=== PATIENT | female | born 1940 | race Two or more races ===

== ENCOUNTER 2024-01-21 22:13 | Inpatient (IN) | payer MEDICARE, BC ==
[~2024-01-21] VITALS: Ht 154.9 cm; Wt 68.5 kg
[2024-01-21 21:27] VITALS: BP 133/55; PULSE 93; TEMP 97.5
[2024-01-21 21:30] VITALS: BP 133/55; PULSE 93; RESP 18; TEMP 97.5
[~2024-01-21 22:13] MED LIST: DENO60DI SQ; LATA2.5D14 EACHEYE; LOSA50TA41 PO; MESA1.2T2 MT; METF-873 PO; P50 MT; PRED10TA23 PO; ROSU5TAB PO
[2024-01-21] MEDS ORDERED: DIPHENHYDRAMINE 50MG/ML VIAL IV PRN (23:00)
[2024-01-21] MEDS ORDERED: NALOXONE HCL 0.4MG/ML 1ML VIAL IV PRN (23:00)
[2024-01-21] MEDS ORDERED: CLONIDINE 0.1MG TABLET PO PRN (23:00)
[2024-01-22] MEDS: ONDANSETRON HCL 4MG/2ML INJ IV PRN (00:35)
[2024-01-22 06:47] LABS: CHLORIDE 106 mEq/L (98-107); POTASSIUM 4.1 mEq/L (3.5-5.1); SODIUM 139 mEq/L (136-145)
[2024-01-22 06:48] LABS: CARBON DIOXIDE 26 mEq/L (21-32)
[2024-01-22 06:53] LABS: CREATININE 0.8 mg/dL (0.6-1.0); GLUCOSE 113 mg/dL (70-105); UREA NITROGEN BLOOD 21 mg/dL (9-23)
[2024-01-22 06:55] LABS: ALANINE AMINOTRANSFERASE 12 IU/L (10-49); ASPARTATE AMINOTRANSFERASE 22 IU/L (<34); BILIRUBIN TOTAL 0.5 mg/dL (0.1-1.0); PREALBUMIN 13.6 mg/dl (10.0-40.0); PROTEIN TOTAL 6.4 g/dL (6.0-8.3)
[2024-01-22 06:59] LABS: HEMATOCRIT. 49.5 % (36.0-48.0); HEMOGLOBIN. 16.6 g/dL (12.0-16.0); MEAN CORPUSCULAR HEMOGLOBIN 31.1 pg (28.0-32.0); MEAN CORPUSCULAR HGB CONC 33.5 g/dL (31.0-37.0); MEAN CORPUSCULAR VOLUME 92.6 fL (81.0-99.0); PLATELET 306 x1000/uL (130-400); RED BLOOD CELL COUNT 5.35 mill/uL (4.2-5.4); RED CELL DISTRIBUTION WIDTH 14.7 % (11.6-14.6)
[2024-01-22 07:21] LABS: CALCIUM 10.5 mg/dL (8.7-10.4)
[2024-01-22 07:40] LABS: DIFFERENTIAL COMMENT 1
[2024-01-22 08:00] VITALS: BP 126/67; PULSE 95; TEMP 97.8
[2024-01-22] MEDS: CALCITONIN,SALMON, 3.7 ML NASAL SPRAY ONENSTRL SCH (09:50)
[2024-01-22] MEDS: LACTULOSE 20G/30ML UDC PO SCH (09:50)
[2024-01-22] MEDS: LIDOCAINE 5% PATCH TOP SCH (09:51)
[2024-01-22] MEDS: GABAPENTIN 100MG CAPSULE PO SCH (09:51)
[2024-01-22] MEDS: CALCIUM CARBONATE/VITAMIN D3 500MG TABLET PO SCH (09:51)
[2024-01-22] MEDS: METOPROLOL TARTRATE 25MG TABLET PO SCH (09:52)
[2024-01-22 16:12] LABS: PLATELET ESTIMATE NORMAL
[2024-01-22] MEDS: LATANOPROST 0.005% OPHTH DROPS 2.5ML BOTHEYE SCH (21:22)
[2024-01-23 05:55] LABS: BASOPHILS % 0.7 % (0.0-2.0); HEMATOCRIT. 47.1 % (36.0-48.0); HEMOGLOBIN. 15.7 g/dL (12.0-16.0); LYMPHOCYTES % 8.8 % (20.0-50.0); MEAN CORPUSCULAR HEMOGLOBIN 30.8 pg (28.0-32.0); MEAN CORPUSCULAR HGB CONC 33.2 g/dL (31.0-37.0); MEAN CORPUSCULAR VOLUME 92.8 fL (81.0-99.0); MEAN PLATELET VOLUME 9.3 fl (7.4-10.4); MONOCYTES % 9.5 % (2.0-8.0); PLATELET 295 x1000/uL (130-400); RED BLOOD CELL COUNT 5.07 mill/uL (4.2-5.4); RED CELL DISTRIBUTION WIDTH 14.6 % (11.6-14.6); WHITE BLOOD COUNT 9.2 x1000/uL (4.5-11.0)
[2024-01-23 06:11] LABS: CHLORIDE 105 mEq/L (98-107); POTASSIUM 4.1 mEq/L (3.5-5.1); SODIUM 137 mEq/L (136-145)
[2024-01-23 06:12] LABS: CALCIUM 10.8 mg/dL (8.7-10.4); CARBON DIOXIDE 24 mEq/L (21-32)
[2024-01-23 06:13] LABS: THYROID STIMULATING HORMONE 1.72 uIU/mL (0.55-4.78)
[2024-01-23 06:16] LABS: IRON 48 ug/dL (50-170)
[2024-01-23 06:17] LABS: CREATININE 0.9 mg/dL (0.6-1.0); GLUCOSE 82 mg/dL (70-105); UREA NITROGEN BLOOD 32 mg/dL (9-23)
[2024-01-23 06:18] LABS: ALANINE AMINOTRANSFERASE 11 IU/L (10-49)
[2024-01-23 06:19] LABS: ALBUMIN 3.9 g/dL (3.2-4.8); ASPARTATE AMINOTRANSFERASE 21 IU/L (<34); BILIRUBIN TOTAL 0.7 mg/dL (0.1-1.0); PROTEIN TOTAL 6.3 g/dL (6.0-8.3); TOTAL IRON BINDING CAPACITY 229 ug/dl (250-425)
[2024-01-23 06:21] LABS: FOLIC ACID (FOLATE) SERUM > 20.00 ng/mL (>5.38)
[2024-01-23 06:22] LABS: FERRITIN 429 ng/mL (10-291); VITAMIN B12 SERUM 314 pg/mL (211-911)
[2024-01-23 08:00] VITALS: BP 121/44; PULSE 80; RESP 17; TEMP 98
[2024-01-23] MEDS: HYDROCODONE/ACETAMINOPHEN 5/325MG TABLET PO PRN (13:46)
[2024-01-23] MEDS: FERROUS SULFATE 325MG TABLET PO SCH (16:50)
[2024-01-23] MEDS: CYANOCOBALAMIN 1000MCG/ML VIAL IM SCH (16:50)
[2024-01-23 20:00] VITALS: BP 118/62; PULSE 86; RESP 17; TEMP 97.2
[2024-01-24 08:00] VITALS: BP 121/68; PULSE 83; RESP 18; TEMP 97.7
[2024-01-24] MEDS: ASCORBIC ACID 500 MG TABLET PO SCH (09:36)
[2024-01-24] MEDS ORDERED: ACETAMINOPHEN 325MG TABLET PO PRN (12:00)
[2024-01-24] MEDS: LOPERAMIDE HCL 2MG CAPSULE PO PRN (16:24)
[2024-01-24] MEDS: PREDNISONE 10MG TABLET PO SCH (16:24)
[2024-01-24] MEDS ORDERED: MESALAMINE 250MG CAPSULE EXTENDED RELEASE PO SCH (17:00)
[2024-01-24 20:00] VITALS: BP 125/46; PULSE 82; RESP 18; TEMP 98.2
[2024-01-25 08:00] VITALS: BP 181/82; PULSE 104; RESP 17; TEMP 97.3
[2024-01-25] MEDS ORDERED: LACTULOSE 20G/30ML UDC PO PRN (08:15)
[2024-01-25] MEDS: MESALAMINE 400 MG CAPSULE.DR PO SCH (13:49)
[2024-01-25] MEDS ORDERED: METF-414 PO (17:10)
[2024-01-25] MEDS ORDERED: PRED5TAB PO (17:10)
[2024-01-25] MEDS ORDERED: ROSU5TAB PO (17:10)
[2024-01-25] MEDS ORDERED: MESA1.2T3 PO (17:11)
[2024-01-25] MEDS ORDERED: LOSA50TA41 PO (17:11)
[2024-01-25 20:00] VITALS: BP 109/56; PULSE 68; RESP 18; TEMP 98.2
[2024-01-26 07:54] LABS: BASOPHILS % 1.1 % (0.0-2.0); EOSINOPHILS % 2.2 % (0.0-5.0); HEMATOCRIT. 42.3 % (36.0-48.0); HEMOGLOBIN. 14.2 g/dL (12.0-16.0); LYMPHOCYTES % 10.2 % (20.0-50.0); MEAN CORPUSCULAR HEMOGLOBIN 30.7 pg (28.0-32.0); MEAN CORPUSCULAR HGB CONC 33.5 g/dL (31.0-37.0); MEAN CORPUSCULAR VOLUME 91.8 fL (81.0-99.0); MEAN PLATELET VOLUME 9.8 fl (7.4-10.4); MONOCYTES % 9.2 % (2.0-8.0); NEUTROPHILS % 77.3 % (40.0-76.0); PLATELET 276 x1000/uL (130-400); RED BLOOD CELL COUNT 4.61 mill/uL (4.2-5.4); RED CELL DISTRIBUTION WIDTH 14.1 % (11.6-14.6); WHITE BLOOD COUNT 7.7 x1000/uL (4.5-11.0)
[2024-01-26 08:00] VITALS: BP 117/61; PULSE 75; RESP 17; TEMP 96.3
[2024-01-26 08:03] LABS: CHLORIDE 105 mEq/L (98-107); POTASSIUM 3.7 mEq/L (3.5-5.1); SODIUM 139 mEq/L (136-145)
[2024-01-26 08:04] LABS: CARBON DIOXIDE 28 mEq/L (21-32)
[2024-01-26 08:09] LABS: CREATININE 0.7 mg/dL (0.6-1.0); GLUCOSE 86 mg/dL (70-105)
[2024-01-26 08:10] LABS: UREA NITROGEN BLOOD 31 mg/dL (9-23)
[2024-01-26 20:00] VITALS: BP 115/70; PULSE 81; RESP 17; TEMP 97.7
[2024-01-27] MEDS: ACETAMINOPHEN 500MG TABLET PO PRN (02:33)
[2024-01-27 06:35] LABS: CHLORIDE 108 mEq/L (98-107); POTASSIUM 3.7 mEq/L (3.5-5.1); SODIUM 140 mEq/L (136-145)
[2024-01-27 06:36] LABS: CARBON DIOXIDE 27 mEq/L (21-32)
[2024-01-27 06:37] LABS: CALCIUM 10.1 mg/dL (8.7-10.4)
[2024-01-27 06:41] LABS: CREATININE 0.7 mg/dL (0.6-1.0); GLUCOSE 89 mg/dL (70-105)
[2024-01-27 06:42] LABS: UREA NITROGEN BLOOD 27 mg/dL (9-23)
[2024-01-27 06:44] LABS: EOSINOPHILS % 1.7 % (0.0-5.0); HEMATOCRIT. 43.7 % (36.0-48.0); HEMOGLOBIN. 14.8 g/dL (12.0-16.0); LYMPHOCYTES % 12.7 % (20.0-50.0); MEAN CORPUSCULAR HEMOGLOBIN 31.1 pg (28.0-32.0); MEAN CORPUSCULAR HGB CONC 33.9 g/dL (31.0-37.0); MEAN CORPUSCULAR VOLUME 91.9 fL (81.0-99.0); MEAN PLATELET VOLUME 9.8 fl (7.4-10.4); MONOCYTES % 12.3 % (2.0-8.0); NEUTROPHILS % 72.3 % (40.0-76.0); PLATELET 283 x1000/uL (130-400); RED BLOOD CELL COUNT 4.76 mill/uL (4.2-5.4); RED CELL DISTRIBUTION WIDTH 14.1 % (11.6-14.6); WHITE BLOOD COUNT 5.7 x1000/uL (4.5-11.0)
[2024-01-27 08:00] VITALS: BP 140/78; PULSE 86; RESP 19; TEMP 97.1
[2024-01-27] MEDS: ACETAMINOPHEN 325MG TABLET PO PRN (09:18)
[2024-01-27] MEDS: METFORMIN HCL 500MG TABLET PO NR (14:05)
[2024-01-27] MEDS ORDERED: NALOXONE HCL 0.4MG/ML VIAL IV PRN (19:30)
[2024-01-27] MEDS: HYDROCODONE/ACETAMINOPHEN 5/325MG TABLET PO PRN (19:40)
[2024-01-27 20:00] VITALS: BP 140/79; PULSE 88; RESP 17; TEMP 97.9
[2024-01-27] MEDS: ATORVASTATIN CALCIUM 10MG TABLET PO SCH (21:01)
[2024-01-28] MEDS: LOPERAMIDE HCL 2MG CAPSULE PO PRN (01:49)
[2024-01-28 07:30] LABS: CHLORIDE 107 mEq/L (98-107); POTASSIUM 3.4 mEq/L (3.5-5.1); SODIUM 139 mEq/L (136-145)
[2024-01-28 07:31] LABS: CARBON DIOXIDE 27 mEq/L (21-32)
[2024-01-28 07:32] LABS: CALCIUM 9.7 mg/dL (8.7-10.4)
[2024-01-28 07:36] LABS: CREATININE 0.7 mg/dL (0.6-1.0)
[2024-01-28 07:37] LABS: GLUCOSE 75 mg/dL (70-105); UREA NITROGEN BLOOD 28 mg/dL (9-23)
[2024-01-28 07:49] LABS: HEMATOCRIT. 43.6 % (36.0-48.0); HEMOGLOBIN. 14.6 g/dL (12.0-16.0); MEAN CORPUSCULAR HEMOGLOBIN 30.8 pg (28.0-32.0); MEAN CORPUSCULAR HGB CONC 33.5 g/dL (31.0-37.0); MEAN CORPUSCULAR VOLUME 91.7 fL (81.0-99.0); MEAN PLATELET VOLUME 9.4 fl (7.4-10.4); PLATELET 287 x1000/uL (130-400); RED BLOOD CELL COUNT 4.75 mill/uL (4.2-5.4); RED CELL DISTRIBUTION WIDTH 14.2 % (11.6-14.6); WHITE BLOOD COUNT 3.8 x1000/uL (4.5-11.0)
[2024-01-28 07:52] LABS: DIFFERENTIAL COMMENT 1
[2024-01-28 08:00] VITALS: BP 120/63; PULSE 71; RESP 16; TEMP 97
[2024-01-28] MEDS: POTASSIUM CHLORIDE 20MEQ/PACKET PO NR (12:05)
[2024-01-28 20:00] VITALS: BP 131/52; PULSE 78; RESP 17; TEMP 98.1
[2024-01-28 21:08] LABS: PLATELET ESTIMATE NORMAL
[2024-01-29 06:54] LABS: CALCIUM 9.8 mg/dL (8.7-10.4); CARBON DIOXIDE 29 mEq/L (21-32); CHLORIDE 105 mEq/L (98-107); POTASSIUM 3.8 mEq/L (3.5-5.1); SODIUM 141 mEq/L (136-145)
[2024-01-29 07:00] LABS: CREATININE 0.8 mg/dL (0.6-1.0); GLUCOSE 79 mg/dL (70-105); UREA NITROGEN BLOOD 25 mg/dL (9-23)
[2024-01-29 07:06] LABS: BASOPHILS % 0.8 % (0.0-2.0); EOSINOPHILS % 1.8 % (0.0-5.0); HEMATOCRIT. 42.6 % (36.0-48.0); HEMOGLOBIN. 14.3 g/dL (12.0-16.0); LYMPHOCYTES % 10.5 % (20.0-50.0); MEAN CORPUSCULAR HEMOGLOBIN 30.9 pg (28.0-32.0); MEAN CORPUSCULAR HGB CONC 33.6 g/dL (31.0-37.0); MEAN CORPUSCULAR VOLUME 92.1 fL (81.0-99.0); MEAN PLATELET VOLUME 9.1 fl (7.4-10.4); MONOCYTES % 9.5 % (2.0-8.0); NEUTROPHILS % 77.4 % (40.0-76.0); PLATELET 241 x1000/uL (130-400); RED BLOOD CELL COUNT 4.63 mill/uL (4.2-5.4); RED CELL DISTRIBUTION WIDTH 14.1 % (11.6-14.6); WHITE BLOOD COUNT 6.5 x1000/uL (4.5-11.0)
[2024-01-29 08:00] VITALS: BP 117/63; PULSE 72; RESP 18; TEMP 97.9
[2024-01-29 20:00] VITALS: BP 102/67; PULSE 88; RESP 18; TEMP 98.6
[2024-01-30 08:00] VITALS: BP 128/65; PULSE 92; RESP 17; TEMP 97.1
[2024-01-30] MEDS: PREDNISONE 20MG TABLET PO SCH (08:28)
[2024-01-30 19:46] VITALS: BP 122/87; PULSE 54; RESP 17; TEMP 97.2
[2024-01-30] MEDS: MIRTAZAPINE 15MG TABLET PO SCH (21:00)
[2024-01-31 07:55] LABS: BASOPHILS % 0.6 % (0.0-2.0); EOSINOPHILS % 0.7 % (0.0-5.0); HEMATOCRIT. 40.9 % (36.0-48.0); HEMOGLOBIN. 13.7 g/dL (12.0-16.0); LYMPHOCYTES % 9.1 % (20.0-50.0); MEAN CORPUSCULAR HEMOGLOBIN 30.7 pg (28.0-32.0); MEAN CORPUSCULAR HGB CONC 33.5 g/dL (31.0-37.0); MEAN CORPUSCULAR VOLUME 91.7 fL (81.0-99.0); MEAN PLATELET VOLUME 9.8 fl (7.4-10.4); NEUTROPHILS % 80.6 % (40.0-76.0); PLATELET 204 x1000/uL (130-400); RED BLOOD CELL COUNT 4.46 mill/uL (4.2-5.4); RED CELL DISTRIBUTION WIDTH 14.3 % (11.6-14.6); WHITE BLOOD COUNT 9.2 x1000/uL (4.5-11.0)
[2024-01-31 08:00] VITALS: BP 130/62; PULSE 67; RESP 19; TEMP 97.9
[2024-01-31 08:04] LABS: CARBON DIOXIDE 27 mEq/L (21-32); CHLORIDE 104 mEq/L (98-107); POTASSIUM 3.6 mEq/L (3.5-5.1); SODIUM 141 mEq/L (136-145)
[2024-01-31 08:05] LABS: CALCIUM 9.5 mg/dL (8.7-10.4)
[2024-01-31 08:09] LABS: CREATININE 0.7 mg/dL (0.6-1.0)
[2024-01-31 08:10] LABS: GLUCOSE 72 mg/dL (70-105)
[2024-01-31 08:11] LABS: UREA NITROGEN BLOOD 28 mg/dL (9-23)
[2024-01-31] MEDS: MEGESTROL ACETATE 400 MG/10 ML UDC PO NR (14:56)
[2024-01-31 20:00] VITALS: BP 112/50; PULSE 73; RESP 18; TEMP 98.2
[2024-02-01 08:00] VITALS: BP_SYST 135; BP_SYST 151; BP_DIAS 57; BP_DIAS 73; PULSE 71; PULSE 72; RESP 17; RESP 19; TEMP 97.2; TEMP 99
[2024-02-01] MEDS: LACTOBACILLUS GG CAPSULE PO SCH (08:55)
[2024-02-01] MEDS: MULTIVITAMINS,THER W-MINERALS TABLET PO SCH (08:56)
[2024-02-01] MEDS: MEGESTROL ACETATE 400 MG/10 ML UDC PO SCH (09:00)
[2024-02-01] MEDS: DEXT 5%/0.45% NACL 1000ML 1,000 ML IV SCH (10:52)
[2024-02-01 12:44] LABS: CARBON DIOXIDE 29 mEq/L (21-32); CHLORIDE 105 mEq/L (98-107); POTASSIUM 3.9 mEq/L (3.5-5.1); SODIUM 139 mEq/L (136-145)
[2024-02-01 12:45] LABS: CALCIUM 9.5 mg/dL (8.7-10.4)
[2024-02-01 12:49] LABS: CREATININE 0.7 mg/dL (0.6-1.0); GLUCOSE 123 mg/dL (70-105)
[2024-02-01 12:50] LABS: UREA NITROGEN BLOOD 26 mg/dL (9-23)
[2024-02-01 13:15] LABS: HEMATOCRIT. 41.7 % (36.0-48.0); HEMOGLOBIN. 13.9 g/dL (12.0-16.0); MEAN CORPUSCULAR HEMOGLOBIN 30.5 pg (28.0-32.0); MEAN CORPUSCULAR HGB CONC 33.3 g/dL (31.0-37.0); MEAN CORPUSCULAR VOLUME 91.8 fL (81.0-99.0); MEAN PLATELET VOLUME 9.8 fl (7.4-10.4); PLATELET 224 x1000/uL (130-400); RED BLOOD CELL COUNT 4.54 mill/uL (4.2-5.4); RED CELL DISTRIBUTION WIDTH 14.6 % (11.6-14.6); WHITE BLOOD COUNT 12.3 x1000/uL (4.5-11.0)
[2024-02-01 13:17] LABS: DIFFERENTIAL COMMENT 1
[2024-02-01 14:36] LABS: PLATELET ESTIMATE NORMAL
[2024-02-01 18:00] LABS: CLARITY URINE CLEAR (CLEAR); COLOR URINE DARK YELLOW (YELLOW); GLUCOSE URINE NEGATIVE (NEGATIVE); KETONES URINE TRACE (NEGATIVE); LEUKOCYTE ESTERASE URINE TRACE (NEGATIVE); NITRITE URINE NEGATIVE (NEGATIVE); OCCULT BLOOD URINE NEGATIVE (NEGATIVE); PH URINE 5.5 (4.5-8.0); PROTEIN URINE NEGATIVE (NEGATIVE); SPECIFIC GRAVITY URINE 1.024 (1.005-1.030); UROBILINOGEN URINE 0.2 E.U./dL (0.2-1.0)
[2024-02-01 18:21] LABS: BACTERIA URINE TRACE; RBC URINE 0-2 /hpf (0-2); SQUAMOUS EPITHELIAL CELL URINE RARE /lpf (RARE/1+); WBC URINE 0-2 /hpf (0-2)
[2024-02-01 20:00] VITALS: BP 114/61; PULSE 75; RESP 20; TEMP 97.5
[2024-02-02 08:00] VITALS: BP 112/60; PULSE 85; RESP 20; TEMP 100
[2024-02-02 10:41] LABS: BASOPHILS % 0.3 % (0.0-2.0); DIFFERENTIAL COMMENT 0; EOSINOPHILS % 0.7 % (0.0-5.0); HEMATOCRIT. 42.3 % (36.0-48.0); HEMOGLOBIN. 14.2 g/dL (12.0-16.0); LYMPHOCYTES % 8.4 % (20.0-50.0); MEAN CORPUSCULAR HEMOGLOBIN 31.4 pg (28.0-32.0); MEAN CORPUSCULAR HGB CONC 33.6 g/dL (31.0-37.0); MEAN CORPUSCULAR VOLUME 93.3 fL (81.0-99.0); MEAN PLATELET VOLUME 9.5 fl (7.4-10.4); MONOCYTES % 11.1 % (2.0-8.0); NEUTROPHILS % 79.5 % (40.0-76.0); PLATELET 197 x1000/uL (130-400); RED BLOOD CELL COUNT 4.53 mill/uL (4.2-5.4); RED CELL DISTRIBUTION WIDTH 14.2 % (11.6-14.6); WHITE BLOOD COUNT 9.7 x1000/uL (4.5-11.0)
[2024-02-02 11:07] LABS: CALCIUM 9.5 mg/dL (8.7-10.4); CARBON DIOXIDE 26 mEq/L (21-32); CHLORIDE 108 mEq/L (98-107); POTASSIUM 3.2 mEq/L (3.5-5.1); SODIUM 141 mEq/L (136-145)
[2024-02-02 11:12] LABS: CREATININE 0.6 mg/dL (0.6-1.0)
[2024-02-02 11:13] LABS: GLUCOSE 102 mg/dL (70-105); UREA NITROGEN BLOOD 17 mg/dL (9-23)
[2024-02-02 20:00] VITALS: BP 139/62; PULSE 88; RESP 17; TEMP 98.4
[2024-02-03 08:00] VITALS: BP 126/62; PULSE 74; RESP 19; TEMP 98.6
[2024-02-03] MEDS: POTASSIUM CHLORIDE 20MEQ TABLET SR PO NR (12:53)
[2024-02-03 19:49] VITALS: BP 128/49; PULSE 76; RESP 20; TEMP 97.9
[2024-02-04 08:00] VITALS: BP 97/48; PULSE 87; RESP 17; TEMP 96.7
[2024-02-04 09:57] LABS: HEMATOCRIT. 41.1 % (36.0-48.0); HEMOGLOBIN. 13.6 g/dL (12.0-16.0); MEAN CORPUSCULAR HEMOGLOBIN 30.6 pg (28.0-32.0); MEAN CORPUSCULAR HGB CONC 33.1 g/dL (31.0-37.0); MEAN CORPUSCULAR VOLUME 92.5 fL (81.0-99.0); MEAN PLATELET VOLUME 9.7 fl (7.4-10.4); PLATELET 175 x1000/uL (130-400); RED BLOOD CELL COUNT 4.44 mill/uL (4.2-5.4); RED CELL DISTRIBUTION WIDTH 14.9 % (11.6-14.6); WHITE BLOOD COUNT 16.1 x1000/uL (4.5-11.0)
[2024-02-04 10:00] LABS: DIFFERENTIAL COMMENT 1
[2024-02-04 10:19] LABS: CARBON DIOXIDE 25 mEq/L (21-32); CHLORIDE 110 mEq/L (98-107); POTASSIUM 3.8 mEq/L (3.5-5.1); SODIUM 140 mEq/L (136-145)
[2024-02-04 10:20] LABS: CALCIUM 8.5 mg/dL (8.7-10.4)
[2024-02-04 10:25] LABS: CREATININE 0.9 mg/dL (0.6-1.0); GLUCOSE 114 mg/dL (70-105); UREA NITROGEN BLOOD 19 mg/dL (9-23)
[2024-02-04 17:24] LABS: PLATELET ESTIMATE NORMAL
[2024-02-04 20:00] VITALS: BP 105/57; PULSE 65; RESP 19; TEMP 98
[2024-02-05 08:00] VITALS: BP 122/68; PULSE 90; RESP 17; TEMP 96.8
[2024-02-05] MEDS: PHENAZOPYRIDINE HCL 100MG TABLET PO SCH (09:23)
[2024-02-05 12:46] VITALS: BP 119/61; PULSE 88; TEMP 96.8; O2SAT 98
[2024-02-05 13:35] LABS: CARBON DIOXIDE 24 mEq/L (21-32); CHLORIDE 111 mEq/L (98-107); POTASSIUM 4.1 mEq/L (3.5-5.1); SODIUM 141 mEq/L (136-145)
[2024-02-05 13:37] LABS: CALCIUM 8.8 mg/dL (8.7-10.4)
[2024-02-05 13:41] LABS: CREATININE 0.7 mg/dL (0.6-1.0); GLUCOSE 133 mg/dL (70-105); UREA NITROGEN BLOOD 23 mg/dL (9-23)
[2024-02-05 13:43] LABS: HEMATOCRIT. 42.3 % (36.0-48.0); HEMOGLOBIN. 13.9 g/dL (12.0-16.0); MEAN CORPUSCULAR HEMOGLOBIN 30.1 pg (28.0-32.0); MEAN CORPUSCULAR VOLUME 91.4 fL (81.0-99.0); MEAN PLATELET VOLUME 9.8 fl (7.4-10.4); PLATELET 218 x1000/uL (130-400); RED BLOOD CELL COUNT 4.63 mill/uL (4.2-5.4); RED CELL DISTRIBUTION WIDTH 14.5 % (11.6-14.6); WHITE BLOOD COUNT 17.5 x1000/uL (4.5-11.0)
[2024-02-05 13:48] LABS: DIFFERENTIAL COMMENT 1
[2024-02-05 19:04] LABS: PLATELET ESTIMATE NORMAL
== END 2024-02-05 13:40 | DRG 543 ==
PROVIDERS: ADMIT Physical Medicine & Rehabilitation Spinal Cord Injury Medicine; ATTEND Family Medicine Adult Medicine
DX: M48.56XA Collapsed vertebra, not elsewhere classified, lumbar region, initial encounter for fracture (principal); K51.90 Ulcerative colitis, unspecified, without complications; N39.0 Urinary tract infection, site not specified; M48.061 Spinal stenosis, lumbar region without neurogenic claudication; F41.9 Anxiety disorder, unspecified; F39 Unspecified mood [affective] disorder; E78.00 Pure hypercholesterolemia, unspecified; G89.29 Other chronic pain; I10 Essential (primary) hypertension; M81.0 Age-related osteoporosis without current pathological fracture; E61.1 Iron deficiency; E87.6 Hypokalemia; R00.0 Tachycardia, unspecified; R26.2 Difficulty in walking, not elsewhere classified; R53.1 Weakness; R53.81 Other malaise; R20.0 Anesthesia of skin; R30.0 Dysuria; Z88.2 Allergy status to sulfonamides; Z91.81 History of falling; Z82.49 Family history of ischemic heart disease and other diseases of the circulatory system
CPT/HCPCS: 36415; 80048; 80053; 81003; 82306; 82607; 82728; 82746; 82962; 83036; 83540; 83550; 83735; 84134; 84145; 84443; 85025; 85651; 87015; 87045; 87177; 87209; 87427; 87449; 89055; 92523; 92610; 93306; 97110; 97112; 97116; 97150; 97162; 97166; 97530; 97535; 97542; A6261; J2405; J3420; J7512

== ENCOUNTER 2024-06-06 19:04 | Inpatient (IN) | payer MEDICARE, BC, OTHER ==
[~2024-06-06] VITALS: Ht 162.6 cm; Wt 42.8 kg
[~2024-06-06 19:04] MED LIST changes: -DENO60DI SQ; -MESA1.2T2 MT; +MESA1.2T3 PO; +METF-414 PO; -METF-873 PO; -P50 MT; -PRED10TA23 PO; +PRED5TAB PO
[2024-06-06] MEDS: ONDANSETRON HCL 4MG/2ML INJ IV ONE (19:54)
[2024-06-06] MEDS: DILTIAZEM HCL 5MG/ML 5ML VIAL IV ONE ×2 (19:54→20:08)
[2024-06-06] MEDS ORDERED: DILTIAZEM HCL 125 MG in DEXT 5% WATER 100 ML IV ONE (21:45)
[2024-06-06] MEDS: SODIUM CHLORIDE 0.9% 500 ML IV ONE (21:51)
[2024-06-06] MEDS: DILTIAZEM HCL 125 MG in DEXT 5% WATER 100 ML IV PRN (22:10)
[2024-06-06 23:38] LABS: HEMATOCRIT. 48.4 % (36.0-48.0); HEMOGLOBIN. 15.4 g/dL (12.0-16.0); MEAN CORPUSCULAR HEMOGLOBIN 27.9 pg (28.0-32.0); MEAN CORPUSCULAR HGB CONC 31.8 g/dL (31.0-37.0); MEAN CORPUSCULAR VOLUME 87.5 fL (81.0-99.0); MEAN PLATELET VOLUME 9.4 fl (7.4-10.4); PLATELET 198 x1000/uL (130-400); RED BLOOD CELL COUNT 5.53 mill/uL (4.2-5.4); RED CELL DISTRIBUTION WIDTH 15.9 % (11.6-14.6); WHITE BLOOD COUNT 12.7 x1000/uL (4.5-11.0)
[2024-06-06] MEDS ORDERED: IPRATROPIUM/ALBUTEROL 0.5-3(2.5)MG/3ML NEB NEB PRN (23:45)
[2024-06-06] MEDS ORDERED: ACETAMINOPHEN 325MG TABLET PO PRN (23:45)
[2024-06-07] VITALS (49 sets, daily range): BP systolic 87–128; BP diastolic 49–90; PULSE 115–155; RESP 14–31; TEMP 36.50292–36.5292; O2SAT 92–100
[2024-06-07] LABS: CARBON DIOXIDE 32 mEq/L (21-32); DIFFERENTIAL COMMENT 1
[2024-06-07 00:02] LABS: CALCIUM 9.6 mg/dL (8.7-10.4)
[2024-06-07] MEDS: ONDANSETRON HCL 4MG/2ML INJ IV ONE (00:04)
[2024-06-07 00:06] LABS: CREATININE 0.6 mg/dL (0.6-1.0); GLUCOSE 129 mg/dL (70-105); UREA NITROGEN BLOOD 15 mg/dL (9-23)
[2024-06-07 00:08] LABS: TROPONIN I HIGH SENSITIVITY 18 ng/L (3.0-34)
[2024-06-07 01:45] LABS: CHLORIDE 105 mEq/L (98-107); SODIUM 145 mEq/L (136-145)
[2024-06-07 01:49] LABS: POTASSIUM 2.4 mEq/L (3.5-5.1)
[2024-06-07 02:31] LABS: TROPONIN I HIGH SENSITIVITY 18 ng/L (3.0-34)
[2024-06-07] MEDS ORDERED: NALOXONE HCL 0.4MG/ML VIAL IV PRN (04:00)
[2024-06-07] MEDS: MORPHINE SULFATE 2 MG/ML INJ (NOT FOR IM USE) IV PRN (04:39)
[2024-06-07] MEDS: KCL 20MEQ/100ML PREMIX 100 ML IV SCH (04:39)
[2024-06-07 05:05] LABS: PLATELET ESTIMATE NORMAL
[2024-06-07] MEDS: PIPERACILLIN/TAZO 3.375G/50ML 50 ML IV SCH (06:21)
[2024-06-07 07:31] LABS: HEMATOCRIT. 51.6 % (36.0-48.0); HEMOGLOBIN. 16.2 g/dL (12.0-16.0); MEAN CORPUSCULAR HEMOGLOBIN 27.9 pg (28.0-32.0); MEAN CORPUSCULAR HGB CONC 31.3 g/dL (31.0-37.0); MEAN CORPUSCULAR VOLUME 89.1 fL (81.0-99.0); MEAN PLATELET VOLUME 9.3 fl (7.4-10.4); PLATELET 204 x1000/uL (130-400); RED BLOOD CELL COUNT 5.79 mill/uL (4.2-5.4); RED CELL DISTRIBUTION WIDTH 16.2 % (11.6-14.6); WHITE BLOOD COUNT 19.1 x1000/uL (4.5-11.0)
[2024-06-07 07:33] LABS: DIFFERENTIAL COMMENT 1
[2024-06-07 07:43] LABS: CARBON DIOXIDE 31 mEq/L (21-32); CHLORIDE 104 mEq/L (98-107); POTASSIUM 3.1 mEq/L (3.5-5.1); SODIUM 144 mEq/L (136-145)
[2024-06-07 07:44] LABS: CALCIUM 9.5 mg/dL (8.7-10.4)
[2024-06-07 07:49] LABS: CREATININE 0.8 mg/dL (0.6-1.0); GLUCOSE 165 mg/dL (70-105); UREA NITROGEN BLOOD 14 mg/dL (9-23)
[2024-06-07] MEDS ORDERED: ENOXAPARIN 30MG/0.3ML SYR SUBCUT SCH (09:00)
[2024-06-07] MEDS ORDERED: LOSARTAN 50 MG TABLET PO SCH (09:00)
[2024-06-07 10:14] LABS: ANISOCYTOSIS 1+; PLATELET ESTIMATE NORMAL
[2024-06-07] MEDS: ONDANSETRON HCL 4MG/2ML INJ IV PRN (10:24)
[2024-06-07] MEDS: SODIUM CHLORIDE 0.45% 1,000 ML IV SCH (10:30)
[2024-06-07] MEDS: PREDNISONE 10MG TABLET PO SCH (12:56)
[2024-06-07] MEDS: ASPIRIN 81MG TABLET PO SCH (12:56)
[2024-06-07] MEDS: ENOXAPARIN 60MG/0.6ML SYR SUBCUT NR (12:57)
[2024-06-07] MEDS: AMIODARONE 150MG/100ML 100 ML IV NR (12:58)
[2024-06-07 13:00] LABS: PROTHROMBIN TIME 11.5 sec (9.6-11.0)
[2024-06-07] MEDS: KCL 20MEQ/100ML PREMIX 100 ML IV NR (13:23)
[2024-06-07] MEDS: BLOOD SUGAR DIAGNOSTIC STRIP TEST SCH (13:28)
[2024-06-07] MEDS ORDERED: DEXTROSE 50% WATER 50ML SYRINGE IV PRN (13:30)
[2024-06-07] MEDS: INSULIN LISPRO 100 UNITS/ML SUBCUT SCH (13:30)
[2024-06-07] MEDS: DIGOXIN 500MCG/2ML AMP IV NR (19:00)
[2024-06-07] MEDS: AMIODARONE HCL 900 MG in DEXT 5% WATER 482 ML IV PRN (19:08)
[2024-06-07 22:06] LABS: POTASSIUM 3.8 mEq/L (3.5-5.1)
[2024-06-07 22:08] LABS: CALCIUM 9.2 mg/dL (8.7-10.4)
[2024-06-07 22:12] LABS: CREATININE 1.1 mg/dL (0.6-1.0)
[2024-06-08] VITALS (91 sets, daily range): BP systolic 89–140; BP diastolic 57–123; PULSE 117–149; RESP 12–39; TEMP 36.33624–36.61404; O2SAT 96–100
[2024-06-08] MEDS: ENOXAPARIN 60MG/0.6ML SYR SUBCUT SCH (02:24)
[2024-06-08 05:57] LABS: CHLORIDE 102 mEq/L (98-107); POTASSIUM 3.3 mEq/L (3.5-5.1); SODIUM 138 mEq/L (136-145)
[2024-06-08 05:59] LABS: CARBON DIOXIDE 26 mEq/L (21-32)
[2024-06-08 06:00] LABS: HEMATOCRIT. 46.5 % (36.0-48.0); HEMOGLOBIN. 14.9 g/dL (12.0-16.0); MEAN CORPUSCULAR HEMOGLOBIN 28.1 pg (28.0-32.0); MEAN CORPUSCULAR HGB CONC 32.1 g/dL (31.0-37.0); MEAN CORPUSCULAR VOLUME 87.5 fL (81.0-99.0); MEAN PLATELET VOLUME 10.6 fl (7.4-10.4); PLATELET 165 x1000/uL (130-400); RED BLOOD CELL COUNT 5.31 mill/uL (4.2-5.4); RED CELL DISTRIBUTION WIDTH 16.2 % (11.6-14.6); WHITE BLOOD COUNT 18.5 x1000/uL (4.5-11.0)
[2024-06-08 06:04] LABS: GLUCOSE 102 mg/dL (70-105); UREA NITROGEN BLOOD 23 mg/dL (9-23)
[2024-06-08 06:05] LABS: ALBUMIN 3.5 g/dL (3.2-4.8)
[2024-06-08 06:06] LABS: ALANINE AMINOTRANSFERASE 10 IU/L (10-49); ASPARTATE AMINOTRANSFERASE 20 IU/L (<34); DIGOXIN 0.7 ng/mL (0.8-2.0); PROTEIN TOTAL 5.5 g/dL (6.0-8.3)
[2024-06-08 06:12] LABS: DIFFERENTIAL COMMENT 1
[2024-06-08 10:19] LABS: ANISOCYTOSIS 1+; PLATELET ESTIMATE NORMAL
[2024-06-08] MEDS: KCL 20MEQ/100ML PREMIX 100 ML IV NR (15:17)
[2024-06-08] MEDS: PIPERACILLIN/TAZO 3.375G/50ML 50 ML IV SCH (15:18)
[2024-06-08] MEDS ORDERED: AMIODARONE 150MG/100ML 100 ML IV NR (15:30)
[2024-06-08] MEDS ORDERED: AMIODARONE HCL 900 MG in DEXT 5% WATER 482 ML IV SCH (16:00)
[2024-06-08 17:00] LABS: PHOSPHORUS 3.2 mg/dL (2.5-4.9)
[2024-06-08] MEDS: AMIODARONE 150MG/100ML 100 ML IV NR (17:29)
[2024-06-08] MEDS: AMIODARONE HCL 900 MG in DEXT 5% WATER 482 ML IV SCH (17:50)
[2024-06-08] MEDS: MAGNESIUM 2 G PREMIX 50 ML IV NR (21:05)
[2024-06-09] VITALS (87 sets, daily range): BP systolic 70–149; BP diastolic 55–122; PULSE 111–141; RESP 15–27; TEMP 36.61404–37.16964; O2SAT 90–99
[2024-06-09 05:32] LABS: CHLORIDE 99 mEq/L (98-107); POTASSIUM 3.9 mEq/L (3.5-5.1); SODIUM 133 mEq/L (136-145)
[2024-06-09 05:33] LABS: HEMATOCRIT. 43.2 % (36.0-48.0); HEMOGLOBIN. 13.7 g/dL (12.0-16.0); MEAN CORPUSCULAR HEMOGLOBIN 28.2 pg (28.0-32.0); MEAN CORPUSCULAR HGB CONC 31.8 g/dL (31.0-37.0); MEAN CORPUSCULAR VOLUME 88.7 fL (81.0-99.0); MEAN PLATELET VOLUME 10.2 fl (7.4-10.4); PLATELET 164 x1000/uL (130-400); RED BLOOD CELL COUNT 4.87 mill/uL (4.2-5.4); RED CELL DISTRIBUTION WIDTH 16.8 % (11.6-14.6); WHITE BLOOD COUNT 15.6 x1000/uL (4.5-11.0)
[2024-06-09 05:34] LABS: CARBON DIOXIDE 25 mEq/L (21-32)
[2024-06-09 05:35] LABS: CALCIUM 8.4 mg/dL (8.7-10.4)
[2024-06-09 05:39] LABS: CREATININE 1.1 mg/dL (0.6-1.0); GLUCOSE 114 mg/dL (70-105)
[2024-06-09 05:40] LABS: UREA NITROGEN BLOOD 27 mg/dL (9-23)
[2024-06-09 05:41] LABS: ALANINE AMINOTRANSFERASE 11 IU/L (10-49); ALBUMIN 3.2 g/dL (3.2-4.8); ASPARTATE AMINOTRANSFERASE 17 IU/L (<34)
[2024-06-09 05:42] LABS: PROTEIN TOTAL 5.4 g/dL (6.0-8.3)
[2024-06-09 05:53] LABS: DIFFERENTIAL COMMENT 1
[2024-06-09 16:23] LABS: ANISOCYTOSIS 1+; PLATELET ESTIMATE NORMAL
[2024-06-09 17:09] LABS: CREATINE KINASE 18 IU/L (34-145)
[2024-06-09] MEDS ORDERED: AMIODARONE HCL 900 MG in DEXT 5% WATER 482 ML IV PRN (18:30)
[2024-06-09 19:34] LABS: CLARITY URINE TURBID (CLEAR); COLOR URINE DARK YELLOW (YELLOW); GLUCOSE URINE NEGATIVE (NEGATIVE); KETONES URINE TRACE (NEGATIVE); LEUKOCYTE ESTERASE URINE 3+ (NEGATIVE); NITRITE URINE POSITIVE (NEGATIVE); OCCULT BLOOD URINE 3+ (NEGATIVE); PH URINE 6.5 (4.5-8.0); PROTEIN URINE 2+ (NEGATIVE); SPECIFIC GRAVITY URINE 1.022 (1.005-1.030)
[2024-06-09 20:19] LABS: WBC URINE TNTC /hpf (0-2)
[2024-06-09 20:20] LABS: BACTERIA URINE 4+; SQUAMOUS EPITHELIAL CELL URINE 1+ /lpf (RARE/1+)
[2024-06-10] VITALS (69 sets, daily range): BP systolic 84–142; BP diastolic 57–94; PULSE 107–149; RESP 12–29; TEMP 36.22512–37.16964; O2SAT 91–100
[2024-06-10] MEDS: ZOLPIDEM TARTRATE 5MG TABLET PO PRN (00:34)
[2024-06-10 05:41] LABS: HEMATOCRIT. 38.3 % (36.0-48.0); HEMOGLOBIN. 12.5 g/dL (12.0-16.0); MEAN CORPUSCULAR HEMOGLOBIN 28.2 pg (28.0-32.0); MEAN CORPUSCULAR HGB CONC 32.5 g/dL (31.0-37.0); MEAN CORPUSCULAR VOLUME 86.6 fL (81.0-99.0); MEAN PLATELET VOLUME 10.1 fl (7.4-10.4); PLATELET 194 x1000/uL (130-400); RED BLOOD CELL COUNT 4.42 mill/uL (4.2-5.4)
[2024-06-10 05:49] LABS: CALCIUM 7.8 mg/dL (8.7-10.4); CARBON DIOXIDE 25 mEq/L (21-32); CHLORIDE 99 mEq/L (98-107); POTASSIUM 3.7 mEq/L (3.5-5.1); SODIUM 130 mEq/L (136-145)
[2024-06-10 05:54] LABS: CREATININE 0.7 mg/dL (0.6-1.0); GLUCOSE 96 mg/dL (70-105)
[2024-06-10 05:55] LABS: UREA NITROGEN BLOOD 23 mg/dL (9-23)
[2024-06-10 06:05] LABS: DIFFERENTIAL COMMENT 1
[2024-06-10] MEDS ORDERED: DEXT 5%/0.45% NACL 1000ML 1,000 ML IV SCH (08:30)
[2024-06-10] MEDS: MAGNESIUM 2 G PREMIX 50 ML IV SCH (08:51)
[2024-06-10] MEDS: DIGOXIN 500MCG/2ML AMP IV SCH (08:51)
[2024-06-10] MEDS: MAGNESIUM OXIDE 400MG TABLET PO SCH (08:51)
[2024-06-10] MEDS: DEXT 5%/0.9% NACL 1,000 ML IV SCH (08:52)
[2024-06-10 09:52] LABS: ANISOCYTOSIS 1+; PLATELET ESTIMATE NORMAL
[2024-06-10 10:15] LABS: PARTIAL THROMBOPLASTIN TIME 43.7 sec (23.4-31.0); PROTHROMBIN TIME 10.8 sec (9.6-11.0)
[2024-06-10] MEDS ORDERED: FUROSEMIDE 20MG TABLET PO NR (18:30)
[2024-06-10] MEDS: FUROSEMIDE 20MG/2ML VIAL IVP NR (20:25)
[2024-06-11] VITALS (77 sets, daily range): BP systolic 68–112; BP diastolic 41–86; PULSE 100–139; RESP 1–38; TEMP 36.22512–36.72516; O2SAT 94–99
[2024-06-11 06:24] LABS: HEMATOCRIT. 42.3 % (36.0-48.0); HEMOGLOBIN. 13.6 g/dL (12.0-16.0); MEAN CORPUSCULAR HEMOGLOBIN 28.3 pg (28.0-32.0); MEAN CORPUSCULAR HGB CONC 32.2 g/dL (31.0-37.0); MEAN CORPUSCULAR VOLUME 87.7 fL (81.0-99.0); MEAN PLATELET VOLUME 9.3 fl (7.4-10.4); PLATELET 160 x1000/uL (130-400); RED BLOOD CELL COUNT 4.82 mill/uL (4.2-5.4); RED CELL DISTRIBUTION WIDTH 16.3 % (11.6-14.6); WHITE BLOOD COUNT 11.5 x1000/uL (4.5-11.0)
[2024-06-11 06:28] LABS: CALCIUM 7.6 mg/dL (8.7-10.4); CARBON DIOXIDE 27 mEq/L (21-32); CHLORIDE 102 mEq/L (98-107); POTASSIUM 3.5 mEq/L (3.5-5.1); SODIUM 134 mEq/L (136-145)
[2024-06-11 06:33] LABS: CREATININE 0.5 mg/dL (0.6-1.0)
[2024-06-11 06:34] LABS: GLUCOSE 93 mg/dL (70-105); UREA NITROGEN BLOOD 10 mg/dL (9-23)
[2024-06-11 06:41] LABS: DIFFERENTIAL COMMENT 1
[2024-06-11] MEDS ORDERED: LIDOCAINE HCL 1% 10 MG/ML 10ML VIAL ONE (07:37)
[2024-06-11] MEDS: KCL 20MEQ/100ML PREMIX 100 ML IV ONE (08:38)
[2024-06-11 09:11] LABS: ANISOCYTOSIS 1+; PLATELET ESTIMATE NORMAL
[2024-06-11] MEDS: HYDROMORPHONE HCL/PF 2MG/ML INJ IV PRN (10:03)
[2024-06-11] MEDS: HYDROMORPHONE HCL/PF 2MG/ML INJ IV NR (10:07)
[2024-06-11] MEDS: DIGOXIN 500MCG/2ML AMP IV PRN (17:48)
[2024-06-11] MEDS: KETOROLAC 15MG/ML VIAL IV PRN (22:12)
[2024-06-12] VITALS (94 sets, daily range): BP systolic 80–122; BP diastolic 41–92; PULSE 82–117; RESP 8–28; TEMP 36.28068–36.89184; O2SAT 91–100
[2024-06-12] MEDS: PHENYLEPHRINE 50MG/250ML PMX 250 ML IV PRN (02:05)
[2024-06-12 06:58] LABS: HEMATOCRIT. 39.2 % (36.0-48.0); HEMOGLOBIN. 12.5 g/dL (12.0-16.0); MEAN CORPUSCULAR HEMOGLOBIN 27.9 pg (28.0-32.0); MEAN CORPUSCULAR VOLUME 87.1 fL (81.0-99.0); PLATELET 188 x1000/uL (130-400); RED CELL DISTRIBUTION WIDTH 16.5 % (11.6-14.6); WHITE BLOOD COUNT 9.9 x1000/uL (4.5-11.0)
[2024-06-12 07:05] LABS: DIFFERENTIAL COMMENT 1
[2024-06-12 07:14] LABS: CALCIUM 7.8 mg/dL (8.7-10.4); CHLORIDE 99 mEq/L (98-107); POTASSIUM 3.7 mEq/L (3.5-5.1); SODIUM 136 mEq/L (136-145)
[2024-06-12 07:15] LABS: CARBON DIOXIDE 29 mEq/L (21-32)
[2024-06-12 07:20] LABS: CREATININE 0.7 mg/dL (0.6-1.0); GLUCOSE 78 mg/dL (70-105); UREA NITROGEN BLOOD 14 mg/dL (9-23)
[2024-06-12 07:22] LABS: PHOSPHORUS 1.8 mg/dL (2.5-4.9)
[2024-06-12] MEDS: MIDODRINE HCL 5MG TABLET PO SCH (14:26)
[2024-06-12] MEDS: POTASSIUM PHOSPHATE 30 MMOL in SODIUM CHLORIDE 0.9% 490 ML IV ONE (14:28)
[2024-06-12 16:19] LABS: ANISOCYTOSIS 1+; PLATELET ESTIMATE NORMAL
[2024-06-12] MEDS: AMIODARONE 200MG TABLET PO SCH (21:13)
[2024-06-13] VITALS (105 sets, daily range): BP systolic 82–143; BP diastolic 42–131; PULSE 73–119; RESP 12–27; TEMP 37.16964–37.2252; O2SAT 95–100
[2024-06-13 05:35] LABS: HEMATOCRIT 34.7 % (36.0-48.0); HEMOGLOBIN 11.4 g/dL (12.0-16.0)
[2024-06-13 05:39] LABS: CALCIUM 7.4 mg/dL (8.7-10.4); CARBON DIOXIDE 31 mEq/L (21-32); CHLORIDE 101 mEq/L (98-107); POTASSIUM 3.2 mEq/L (3.5-5.1); SODIUM 136 mEq/L (136-145)
[2024-06-13 05:44] LABS: CREATININE 0.5 mg/dL (0.6-1.0); GLUCOSE 80 mg/dL (70-105)
[2024-06-13 05:45] LABS: UREA NITROGEN BLOOD 10 mg/dL (9-23)
[2024-06-13 05:46] LABS: PHOSPHORUS 2.7 mg/dL (2.5-4.9)
[2024-06-13] MEDS: POTASSIUM CHLORIDE 20MEQ/PACKET PO NR (08:47)
[2024-06-13] MEDS: MIDODRINE HCL 5MG TABLET PO SCH (08:48)
[2024-06-13] MEDS: KCL 20MEQ/100ML PREMIX 100 ML IV SCH (11:41)
[2024-06-13] MEDS: PANTOPRAZOLE SODIUM 40 MG/VIAL IV SCH (18:19)
[2024-06-13] MEDS: CLONIDINE 0.1MG TABLET PO PRN (21:08)
[2024-06-14] VITALS: BP 124/58; PULSE 83; RESP 19; TEMP 37.16964; O2SAT 100
[2024-06-14 04:00] VITALS: BP 118/65; PULSE 85; RESP 15; TEMP 36.3918; O2SAT 98
[2024-06-14 08:00] VITALS: BP 120/70; PULSE 112; RESP 18; TEMP 36.6696; O2SAT 99
[2024-06-14] MEDS: LORAZEPAM 1MG TABLET PO PRN (11:57)
[2024-06-14 12:00] VITALS: BP 130/65; PULSE 105; RESP 20; TEMP 36.6696; O2SAT 98
[2024-06-14] MEDS ORDERED: HALOPERIDOL LACTATE 5MG/ML VIAL IM PRN (12:45)
[2024-06-14 14:40] LABS: CLARITY URINE TURBID (CLEAR); COLOR URINE DARK YELLOW (YELLOW); GLUCOSE URINE NEGATIVE (NEGATIVE); KETONES URINE TRACE (NEGATIVE); LEUKOCYTE ESTERASE URINE 3+ (NEGATIVE); NITRITE URINE NEGATIVE (NEGATIVE); OCCULT BLOOD URINE 2+ (NEGATIVE); PH URINE 5.5 (4.5-8.0); PROTEIN URINE 1+ (NEGATIVE); SPECIFIC GRAVITY URINE 1.024 (1.005-1.030); UROBILINOGEN URINE 0.2 E.U./dL (0.2-1.0)
[2024-06-14 14:53] LABS: AMORPHOUS SEDIMENT URINE 3+ /lpf
[2024-06-14 14:54] LABS: BACTERIA URINE 4+; SQUAMOUS EPITHELIAL CELL URINE NONE SEEN /lpf (RARE/1+); WBC URINE TNTC /hpf (0-2)
[2024-06-14 15:03] LABS: URIC ACID CRYSTALS URINE 1+ /lpf
[2024-06-14 16:00] VITALS: BP 115/51; PULSE 113; RESP 17; TEMP 36.6696; O2SAT 99
[2024-06-14 20:05] VITALS: BP 103/76; PULSE 99; RESP 18; TEMP 36.3918; O2SAT 94
[2024-06-14] MEDS: NITROFURANTOIN 100MG M/M CAPSULE PO SCH (22:28)
[2024-06-14] MEDS: FAMOTIDINE 20MG TABLET PO SCH (22:29)
[2024-06-14 23:33] LABS: HEMOGLOBIN. 13.4 g/dL (12.0-16.0); MEAN CORPUSCULAR HEMOGLOBIN 28.5 pg (28.0-32.0); MEAN CORPUSCULAR HGB CONC 32.6 g/dL (31.0-37.0); MEAN CORPUSCULAR VOLUME 87.3 fL (81.0-99.0); MEAN PLATELET VOLUME 7.9 fl (7.4-10.4); PLATELET 255 x1000/uL (130-400); RED CELL DISTRIBUTION WIDTH 16.4 % (11.6-14.6); WHITE BLOOD COUNT 10.1 x1000/uL (4.5-11.0)
[2024-06-14 23:39] LABS: CHLORIDE 101 mEq/L (98-107); POTASSIUM 4.4 mEq/L (3.5-5.1); SODIUM 137 mEq/L (136-145)
[2024-06-14 23:40] LABS: CARBON DIOXIDE 31 mEq/L (21-32)
[2024-06-14 23:43] LABS: DIFFERENTIAL COMMENT 1
[2024-06-14 23:45] LABS: CREATININE 0.5 mg/dL (0.6-1.0); GLUCOSE 95 mg/dL (70-105); UREA NITROGEN BLOOD 14 mg/dL (9-23)
[2024-06-15 00:05] VITALS: BP 121/73; PULSE 92; RESP 20; TEMP 36.50292; O2SAT 94
[2024-06-15 00:15] LABS: PLATELET ESTIMATE NORMAL
[2024-06-15 04:05] VITALS: BP 139/80; PULSE 107; RESP 17; TEMP 36.16956; O2SAT 94
[2024-06-15 06:29] LABS: HEMATOCRIT. 39.3 % (36.0-48.0); HEMOGLOBIN. 12.5 g/dL (12.0-16.0); MEAN CORPUSCULAR HEMOGLOBIN 28.3 pg (28.0-32.0); MEAN CORPUSCULAR HGB CONC 31.8 g/dL (31.0-37.0); MEAN CORPUSCULAR VOLUME 88.9 fL (81.0-99.0); MEAN PLATELET VOLUME 8.2 fl (7.4-10.4); PLATELET 236 x1000/uL (130-400); RED BLOOD CELL COUNT 4.42 mill/uL (4.2-5.4); RED CELL DISTRIBUTION WIDTH 16.7 % (11.6-14.6); WHITE BLOOD COUNT 10.2 x1000/uL (4.5-11.0)
[2024-06-15 06:30] LABS: CARBON DIOXIDE 29 mEq/L (21-32); CHLORIDE 102 mEq/L (98-107); POTASSIUM 4.1 mEq/L (3.5-5.1); SODIUM 137 mEq/L (136-145)
[2024-06-15 06:31] LABS: CALCIUM 8.7 mg/dL (8.7-10.4)
[2024-06-15 06:35] LABS: CREATININE 0.5 mg/dL (0.6-1.0)
[2024-06-15 06:36] LABS: GLUCOSE 77 mg/dL (70-105); UREA NITROGEN BLOOD 10 mg/dL (9-23)
[2024-06-15 06:41] LABS: DIFFERENTIAL COMMENT 1
[2024-06-15 08:00] VITALS: BP 143/85; PULSE 111; RESP 16; TEMP 36.61404; O2SAT 95
[2024-06-15] MEDS: DEXTROSE/DEXTRIN/MALTOSE 31GM TUBE (24GM/SERVING) PO ONE (11:45)
[2024-06-15 12:00] VITALS: BP 139/92; PULSE 92; RESP 17; TEMP 36.6696; O2SAT 94
[2024-06-15] MEDS: LIDOCAINE HCL 1% 10 MG/ML 10ML VIAL ONE (12:56)
[2024-06-15 14:06] LABS: PLATELET ESTIMATE NORMAL
[2024-06-15 14:07] LABS: ANISOCYTOSIS 1+
[2024-06-15 16:00] VITALS: BP 124/57; PULSE 105; RESP 14; TEMP 36.28068; O2SAT 95
[2024-06-15 20:05] VITALS: BP 123/87; PULSE 118; RESP 31; TEMP 36.22512; O2SAT 94
[2024-06-16] VITALS (12 sets, daily range): BP systolic 106–150; BP diastolic 59–95; PULSE 92–140; RESP 15–24; TEMP 36.22512–36.78072; O2SAT 92–95
[2024-06-16] MEDS: LIDOCAINE HCL 1% 10 MG/ML 10ML VIAL ONE (12:10)
[2024-06-16] MEDS: AMIODARONE 200MG TABLET PO SCH (22:59)
[2024-06-17] VITALS (10 sets, daily range): BP systolic 86–142; BP diastolic 44–87; PULSE 97–131; RESP 16–27; TEMP 36.3918–36.9474; O2SAT 92–99
[2024-06-17] MEDS ORDERED: NALOXONE HCL 0.4MG/ML VIAL IV PRN (09:15)
[2024-06-18] VITALS: BP 120/70; PULSE 102; RESP 18; O2SAT 97
[2024-06-18] MEDS: HYDROCODONE/ACETAMINOPHEN 5/325MG TABLET PO PRN (03:07)
[2024-06-18 04:00] VITALS: BP 115/65; PULSE 112; RESP 20; TEMP 36.6696; O2SAT 98
[2024-06-18 07:53] LABS: CHLORIDE 102 mEq/L (98-107); POTASSIUM 3.8 mEq/L (3.5-5.1); SODIUM 137 mEq/L (136-145)
[2024-06-18 07:54] LABS: CALCIUM 9.3 mg/dL (8.7-10.4); CARBON DIOXIDE 29 mEq/L (21-32)
[2024-06-18 07:59] LABS: CREATININE 0.5 mg/dL (0.6-1.0); GLUCOSE 61 mg/dL (70-105); UREA NITROGEN BLOOD 9 mg/dL (9-23)
[2024-06-18 08:00] VITALS: BP 146/95; PULSE 102; PULSE 109; RESP 16; RESP 19; TEMP 36.6696; TEMP 36.78072; O2SAT 98
[2024-06-18 08:20] LABS: HEMATOCRIT. 40.4 % (36.0-48.0); HEMOGLOBIN. 12.7 g/dL (12.0-16.0); MEAN CORPUSCULAR HEMOGLOBIN 27.6 pg (28.0-32.0); MEAN CORPUSCULAR HGB CONC 31.5 g/dL (31.0-37.0); MEAN CORPUSCULAR VOLUME 87.5 fL (81.0-99.0); MEAN PLATELET VOLUME 7.7 fl (7.4-10.4); PLATELET 283 x1000/uL (130-400); RED BLOOD CELL COUNT 4.62 mill/uL (4.2-5.4); RED CELL DISTRIBUTION WIDTH 16.8 % (11.6-14.6); WHITE BLOOD COUNT 13.4 x1000/uL (4.5-11.0)
[2024-06-18 08:27] LABS: DIFFERENTIAL COMMENT 1
[2024-06-18] MEDS ORDERED: PANT40TA51 PO (09:27)
[2024-06-18] MEDS ORDERED: AMI2 PO (09:27)
[2024-06-18] MEDS ORDERED: FAMO20TA8 PO (09:27)
[2024-06-18] MEDS: DIGOXIN 500MCG/2ML AMP IV NR (09:29)
[2024-06-18] MEDS ORDERED: DIGOXIN 500MCG/2ML AMP IV PRN (11:30)
[2024-06-18 12:00] VITALS: BP 145/77; PULSE 98; RESP 19; TEMP 36.33624; O2SAT 96
[2024-06-18] MEDS: AMIODARONE 200MG TABLET PO SCH (14:17)
[2024-06-18 16:00] VITALS: BP 123/67; PULSE 100; RESP 19; TEMP 36.55848; O2SAT 100
[2024-06-18 17:50] LABS: PLATELET ESTIMATE NORMAL
[2024-06-18 20:00] VITALS: BP 121/67; PULSE 115; RESP 19; TEMP 36.33624; O2SAT 95
[2024-06-19] VITALS: BP 143/82; PULSE 104; RESP 20; TEMP 36.50292; O2SAT 95
[2024-06-19 04:00] VITALS: BP 138/80; PULSE 94; RESP 18; TEMP 36.3918; O2SAT 96
[2024-06-19 07:59] LABS: CALCIUM 9.2 mg/dL (8.7-10.4); CARBON DIOXIDE 28 mEq/L (21-32); CHLORIDE 102 mEq/L (98-107); POTASSIUM 3.8 mEq/L (3.5-5.1); SODIUM 136 mEq/L (136-145)
[2024-06-19 08:05] LABS: CREATININE 0.4 mg/dL (0.6-1.0); GLUCOSE 66 mg/dL (70-105)
[2024-06-19 08:06] LABS: UREA NITROGEN BLOOD 9 mg/dL (9-23)
[2024-06-19 08:10] VITALS: BP 123/63; PULSE 105; RESP 18; TEMP 36.33624; O2SAT 99
[2024-06-19 08:17] LABS: HEMATOCRIT. 39.7 % (36.0-48.0); HEMOGLOBIN. 12.5 g/dL (12.0-16.0); MEAN CORPUSCULAR HEMOGLOBIN 27.3 pg (28.0-32.0); MEAN CORPUSCULAR HGB CONC 31.6 g/dL (31.0-37.0); MEAN CORPUSCULAR VOLUME 86.4 fL (81.0-99.0); MEAN PLATELET VOLUME 7.6 fl (7.4-10.4); PLATELET 332 x1000/uL (130-400); RED BLOOD CELL COUNT 4.59 mill/uL (4.2-5.4); RED CELL DISTRIBUTION WIDTH 16.7 % (11.6-14.6); WHITE BLOOD COUNT 13.4 x1000/uL (4.5-11.0)
[2024-06-19 08:38] LABS: DIFFERENTIAL COMMENT 1
[2024-06-19 12:00] VITALS: BP 148/63; PULSE 106; RESP 18; TEMP 36.114; O2SAT 99
[2024-06-19 16:00] VITALS: BP 110/64; PULSE 76; RESP 20; TEMP 36.28068; O2SAT 99
[2024-06-19] MEDS ORDERED: IPRATROPIUM BROMIDE (0.02%) 0.5MG/2.5ML NEB HHN PRN (17:30)
[2024-06-19 20:00] VITALS: BP 116/69; PULSE 102; RESP 16; TEMP 36.05844; O2SAT 96
[2024-06-20] VITALS: BP 135/76; PULSE 101; RESP 16; TEMP 36.05844; O2SAT 97
[2024-06-20 04:00] VITALS: BP 135/67; PULSE 98; RESP 16; TEMP 36.61404; O2SAT 97
[2024-06-20 08:00] VITALS: BP 124/55; PULSE 101; RESP 18; TEMP 36.6696
[2024-06-20 08:41] LABS: PLATELET ESTIMATE NORMAL
[2024-06-20 12:00] VITALS: BP 110/50; PULSE 101; RESP 18; TEMP 36.114; O2SAT 99
[2024-06-20 16:00] VITALS: BP 118/61; PULSE 88; RESP 18; TEMP 36.114; O2SAT 99
[2024-06-20 17:08] LABS: HEMATOCRIT. 39.6 % (36.0-48.0); HEMOGLOBIN. 12.4 g/dL (12.0-16.0); MEAN CORPUSCULAR HEMOGLOBIN 27.1 pg (28.0-32.0); MEAN CORPUSCULAR HGB CONC 31.3 g/dL (31.0-37.0); MEAN CORPUSCULAR VOLUME 86.7 fL (81.0-99.0); MEAN PLATELET VOLUME 7.4 fl (7.4-10.4); PLATELET 354 x1000/uL (130-400); RED BLOOD CELL COUNT 4.57 mill/uL (4.2-5.4); RED CELL DISTRIBUTION WIDTH 17.3 % (11.6-14.6); WHITE BLOOD COUNT 11.9 x1000/uL (4.5-11.0)
[2024-06-20 17:13] LABS: DIFFERENTIAL COMMENT 1
[2024-06-20 17:26] LABS: CHLORIDE 102 mEq/L (98-107); POTASSIUM 3.8 mEq/L (3.5-5.1); SODIUM 138 mEq/L (136-145)
[2024-06-20 17:27] LABS: CALCIUM 9.6 mg/dL (8.7-10.4); CARBON DIOXIDE 31 mEq/L (21-32)
[2024-06-20 17:32] LABS: CREATININE 0.6 mg/dL (0.6-1.0); GLUCOSE 108 mg/dL (70-105); UREA NITROGEN BLOOD 12 mg/dL (9-23)
[2024-06-20 19:21] LABS: PLATELET ESTIMATE NORMAL
[2024-06-20 20:00] VITALS: BP 143/71; PULSE 104; RESP 19; TEMP 36.55848; O2SAT 98
[2024-06-21] VITALS: BP 140/80; PULSE 101; RESP 19; TEMP 36.50292; O2SAT 97
[2024-06-21 04:00] VITALS: BP 124/58; PULSE 103; RESP 19; TEMP 36.44736; O2SAT 96
[2024-06-21 07:22] LABS: CHLORIDE 102 mEq/L (98-107); POTASSIUM 3.6 mEq/L (3.5-5.1); SODIUM 139 mEq/L (136-145)
[2024-06-21 07:23] LABS: CALCIUM 9.5 mg/dL (8.7-10.4); CARBON DIOXIDE 31 mEq/L (21-32)
[2024-06-21 07:26] LABS: HEMATOCRIT. 38.5 % (36.0-48.0); HEMOGLOBIN. 12.4 g/dL (12.0-16.0); MEAN CORPUSCULAR HEMOGLOBIN 27.6 pg (28.0-32.0); MEAN CORPUSCULAR HGB CONC 32.1 g/dL (31.0-37.0); MEAN CORPUSCULAR VOLUME 85.8 fL (81.0-99.0); MEAN PLATELET VOLUME 7.9 fl (7.4-10.4); PLATELET 366 x1000/uL (130-400); RED BLOOD CELL COUNT 4.49 mill/uL (4.2-5.4); RED CELL DISTRIBUTION WIDTH 17.1 % (11.6-14.6); WHITE BLOOD COUNT 11.3 x1000/uL (4.5-11.0)
[2024-06-21 07:28] LABS: CREATININE 0.6 mg/dL (0.6-1.0); GLUCOSE 71 mg/dL (70-105); UREA NITROGEN BLOOD 13 mg/dL (9-23)
[2024-06-21 07:54] LABS: DIFFERENTIAL COMMENT 1
[2024-06-21 08:00] VITALS: BP 112/55; PULSE 74; RESP 18; TEMP 36.44736; O2SAT 98
[2024-06-21 12:00] VITALS: BP 101/57; PULSE 100; RESP 16; TEMP 36.33624; O2SAT 95
[2024-06-21 16:00] VITALS: BP 115/61; PULSE 101; RESP 18; TEMP 36.6696; O2SAT 99
[2024-06-21 16:52] LABS: ANISOCYTOSIS 1+; PLATELET ESTIMATE NORMAL
[2024-06-21 20:00] VITALS: BP 97/64; PULSE 86; RESP 16; TEMP 36.72516; O2SAT 98
[2024-06-22 04:00] VITALS: BP 109/63; PULSE 101; RESP 17; TEMP 36.55848; O2SAT 96
[2024-06-22 08:00] VITALS: BP 124/46; PULSE 80; RESP 18; TEMP 36.114; O2SAT 100
[2024-06-22] MEDS: AMIODARONE 200MG TABLET PO SCH ×2 (09:05→21:35)
[2024-06-22 12:00] VITALS: BP 114/52; PULSE 74; RESP 16; TEMP 36.3918; O2SAT 97
[2024-06-22 16:00] VITALS: BP 97/59; PULSE 110; RESP 19; TEMP 36.28068; O2SAT 98
[2024-06-22 20:00] VITALS: BP 111/72; PULSE 100; RESP 18; TEMP 36.6696; O2SAT 96
[2024-06-23] VITALS: BP 109/66; PULSE 95; RESP 16; TEMP 36.50292; O2SAT 98
[2024-06-23 04:00] VITALS: BP 134/80; PULSE 90; RESP 18; TEMP 36.6696; O2SAT 98
[2024-06-23 07:19] LABS: CARBON DIOXIDE 31 mEq/L (21-32); CHLORIDE 102 mEq/L (98-107); POTASSIUM 3.8 mEq/L (3.5-5.1); SODIUM 141 mEq/L (136-145)
[2024-06-23 07:21] LABS: CALCIUM 9.5 mg/dL (8.7-10.4)
[2024-06-23 07:25] LABS: CREATININE 0.7 mg/dL (0.6-1.0); GLUCOSE 96 mg/dL (70-105)
[2024-06-23 07:26] LABS: HEMATOCRIT. 39.1 % (36.0-48.0); HEMOGLOBIN. 12.3 g/dL (12.0-16.0); MEAN CORPUSCULAR HEMOGLOBIN 27.4 pg (28.0-32.0); MEAN CORPUSCULAR HGB CONC 31.4 g/dL (31.0-37.0); MEAN CORPUSCULAR VOLUME 87.1 fL (81.0-99.0); PLATELET 433 x1000/uL (130-400); RED BLOOD CELL COUNT 4.49 mill/uL (4.2-5.4); RED CELL DISTRIBUTION WIDTH 17.1 % (11.6-14.6); UREA NITROGEN BLOOD 18 mg/dL (9-23); WHITE BLOOD COUNT 9.8 x1000/uL (4.5-11.0)
[2024-06-23 07:35] LABS: DIFFERENTIAL COMMENT 1
[2024-06-23 08:00] VITALS: BP 110/50; PULSE 98; RESP 18; TEMP 36.05844; O2SAT 99
[2024-06-23] MEDS: PANTOPRAZOLE 40MG DR TABLET PO SCH (09:13)
[2024-06-23 12:00] VITALS: BP 116/62; PULSE 96; RESP 20; TEMP 35.5584; O2SAT 100
[2024-06-23] MEDS: ACETAMINOPHEN 325MG TABLET PO PRN (13:40)
[2024-06-23 16:00] VITALS: BP 124/52; PULSE 87; RESP 18; TEMP 36.114; O2SAT 99
[2024-06-23 20:00] VITALS: BP 108/57; PULSE 114; RESP 20; TEMP 36.33624; O2SAT 95
[2024-06-23 20:31] LABS: OVALOCYTES 1+; PLATELET ESTIMATE NORMAL
[2024-06-24] VITALS (7 sets, daily range): BP systolic 100–119; BP diastolic 50–63; PULSE 53–112; RESP 16–20; TEMP 36.114–36.55848; O2SAT 95–98
[2024-06-25] VITALS (7 sets, daily range): BP systolic 91–117; BP diastolic 48–61; PULSE 99–114; RESP 18–20; TEMP 35.78064–36.89184; O2SAT 96–100
[2024-06-26] VITALS: BP 123/68; PULSE 111; RESP 20; TEMP 36.00288; O2SAT 96
[2024-06-26 04:00] VITALS: BP 119/50; PULSE 104; RESP 20; TEMP 36.22512; O2SAT 95
[2024-06-26 08:00] VITALS: BP 124/52; PULSE 103; RESP 20; TEMP 36.83628; O2SAT 96
[2024-06-26 12:00] VITALS: BP 118/60; PULSE 102; RESP 19; TEMP 36.44736; O2SAT 97
[2024-06-26] MEDS ORDERED: MIDO5TAB4 PO (13:06)
[2024-06-26 16:00] VITALS: BP 105/54; PULSE 107; RESP 24; TEMP 35.8362; O2SAT 96
[2024-06-26 20:00] VITALS: BP 97/51; PULSE 69; RESP 16; TEMP 36.05844; O2SAT 95
[2024-06-27 04:00] VITALS: BP 119/63; PULSE 89; RESP 18; TEMP 36.05844; O2SAT 97
[2024-06-27 08:00] VITALS: BP 123/50; PULSE 108; RESP 19; TEMP 35.72508; O2SAT 95
[2024-06-27 12:00] VITALS: BP 108/54; PULSE 94; RESP 18; TEMP 36.05844; O2SAT 96
[2024-06-27 16:00] VITALS: BP 101/52; PULSE 70; RESP 18; TEMP 36.28068; O2SAT 97
[2024-06-27 20:00] VITALS: BP 114/60; PULSE 104; RESP 18; TEMP 36.05844; O2SAT 95
[2024-06-28] VITALS: BP 107/46; PULSE 99; RESP 18; TEMP 36.22512; O2SAT 100
[2024-06-28 04:00] VITALS: BP 107/46; PULSE 100; RESP 18; TEMP 36.00288; O2SAT 96
[2024-06-28 08:00] VITALS: BP 110/55; PULSE 111; RESP 18; TEMP 35.61396; O2SAT 95
[2024-06-28 12:00] VITALS: BP 129/74; PULSE 57; RESP 21; TEMP 36.00288; O2SAT 95
[2024-06-28 16:00] VITALS: BP 116/74; PULSE 65; RESP 16; TEMP 36.50292; O2SAT 96
[2024-06-28 20:00] VITALS: BP 115/44; PULSE 81; RESP 20; TEMP 36.28068; O2SAT 100
[2024-06-29] VITALS: BP 95/57; PULSE 100; RESP 19; TEMP 36.33624; O2SAT 96
[2024-06-29 04:00] VITALS: BP 94/55; PULSE 90; RESP 18; TEMP 36.3918; O2SAT 100
[2024-06-29 08:00] VITALS: BP 109/56; PULSE 84; RESP 17; TEMP 36.16956; O2SAT 98
[2024-06-29] MEDS: FAMOTIDINE 20MG TABLET PO SCH (09:08)
[2024-06-29 12:00] VITALS: BP 117/48; PULSE 59; RESP 16; TEMP 36.55848; O2SAT 100
[2024-06-29 16:00] VITALS: BP_DIAS 129; PULSE 87; RESP 16; TEMP 36.16956; O2SAT 99
[2024-06-29 20:00] VITALS: BP 116/61; PULSE 117; RESP 20; TEMP 36.28068; O2SAT 96
[2024-06-30] VITALS: BP 111/52; PULSE 116; RESP 18; TEMP 36.55848; O2SAT 100
[2024-06-30 04:00] VITALS: BP 121/56; PULSE 111; RESP 20; TEMP 36.3918; O2SAT 100
[2024-06-30 08:00] VITALS: BP 115/66; PULSE 108; RESP 17; TEMP 36.16956; O2SAT 100
[2024-06-30 12:00] VITALS: BP 114/59; PULSE 102; RESP 18; TEMP 36.22512; O2SAT 100
[2024-06-30] MEDS: DILTIAZEM HCL 30MG TABLET PO SCH (14:52)
[2024-06-30 15:12] VITALS: BP 75/109; PULSE 125; TEMP 97.3; O2SAT 95
== END 2024-06-30 16:07 | DRG 871 ==
LOC: ER 19:04 → EDBEDREQSVC 21:48 → EDBEDREQ 21:48 → EDBEDREQTM 21:48 → CVICU 22:15 → EDBEDREQSVC 23:13 → 3WST 06-13 23:46 → 6WST 06-18 11:54
PROVIDERS: ADMIT Family Medicine Adult Medicine; ATTEND Family Medicine Adult Medicine
PROC: 02H633Z Insertion of Infusion Device into Right Atrium, Percutaneous Approach (ICD-10-PCS; 2024-06-09)
PROC: B548ZZA Ultrasonography of Superior Vena Cava, Guidance (ICD-10-PCS; 2024-06-09)
PROC: 0F9430Z Drainage of Gallbladder with Drainage Device, Percutaneous Approach (ICD-10-PCS; principal; 2024-06-11)
PROC: 02HV33Z Insertion of Infusion Device into Superior Vena Cava, Percutaneous Approach (ICD-10-PCS; 2024-06-15)
PROC: B548ZZA Ultrasonography of Superior Vena Cava, Guidance (ICD-10-PCS; 2024-06-15)
DX: A41.9 Sepsis, unspecified organism (principal); J18.9 Pneumonia, unspecified organism; N17.0 Acute kidney failure with tubular necrosis; J96.01 Acute respiratory failure with hypoxia; K81.0 Acute cholecystitis; M48.54XA Collapsed vertebra, not elsewhere classified, thoracic region, initial encounter for fracture; M48.56XA Collapsed vertebra, not elsewhere classified, lumbar region, initial encounter for fracture; E87.1 Hypo-osmolality and hyponatremia; E46 Unspecified protein-calorie malnutrition; R57.9 Shock, unspecified; N39.0 Urinary tract infection, site not specified; Z68.1 Body mass index [BMI] 19.9 or less, adult; I48.20 Chronic atrial fibrillation, unspecified; Z66 Do not resuscitate; E87.6 Hypokalemia; E78.5 Hyperlipidemia, unspecified; M48.061 Spinal stenosis, lumbar region without neurogenic claudication; E83.39 Other disorders of phosphorus metabolism; E11.22 Type 2 diabetes mellitus with diabetic chronic kidney disease; D64.9 Anemia, unspecified; I12.9 Hypertensive chronic kidney disease with stage 1 through stage 4 chronic kidney disease, or unspecified chronic kidney disease; N18.1 Chronic kidney disease, stage 1; M81.0 Age-related osteoporosis without current pathological fracture; R53.81 Other malaise; F32.A Depression, unspecified; E11.649 Type 2 diabetes mellitus with hypoglycemia without coma; L89.156 Pressure-induced deep tissue damage of sacral region; N21.0 Calculus in bladder; K57.30 Diverticulosis of large intestine without perforation or abscess without bleeding; Z78.1 Physical restraint status; Z79.82 Long term (current) use of aspirin; Z79.84 Long term (current) use of oral hypoglycemic drugs; Z79.899 Other long term (current) drug therapy; Z87.81 Personal history of (healed) traumatic fracture; Z88.2 Allergy status to sulfonamides
CPT/HCPCS: 36415; 36573; 47490; 71045; 73600; 74176; 76700; 76705; 78227; 80048; 80053; 80162; 81003; 82550; 82962; 83036; 83735; 83880; 84100; 84145; 84484; 85014; 85018; 85025; 93005; 93306; 94640; 97162; 99291; A6261; A9537; C1725; C1729; C1760; C1769; C1893; J0282; J1160; J1170; J1650; J1815; J1885; J1940; J2270; J2405; J2470; J2543; J3475; J3480; J3490; J7040; J7042; J7060; J7512; L8514

== ENCOUNTER 2024-08-19 14:11 | Inpatient (IN) | payer MEDICARE, BC, MEDICAID ==
[~2024-08-19] VITALS: Ht 162.6 cm; Wt 45.4 kg
[~2024-08-19 14:11] MED LIST changes: +AMI2 PO; +FAMO20TA8 PO; -LOSA50TA41 PO; +MIDO5TAB4 PO; +PANT40TA51 PO
[2024-08-19] MEDS: SODIUM CHLORIDE 0.9% (SEPSIS BOLUS) IV ONE (15:29)
[2024-08-19] MEDS: MORPHINE SULFATE 4 MG/ML INJ (FOR IV/IM USE) IV ONE (16:15)
[2024-08-19 16:53] LABS: HEMATOCRIT. 40.3 % (36.0-48.0); HEMOGLOBIN. 13.1 g/dL (12.0-16.0); MEAN CORPUSCULAR HEMOGLOBIN 29.2 pg (28.0-32.0); MEAN CORPUSCULAR HGB CONC 32.5 g/dL (31.0-37.0); MEAN CORPUSCULAR VOLUME 89.8 fL (81.0-99.0); MEAN PLATELET VOLUME 8.2 fl (7.4-10.4); PLATELET 330 x1000/uL (130-400); RED BLOOD CELL COUNT 4.48 mill/uL (4.2-5.4); RED CELL DISTRIBUTION WIDTH 20.4 % (11.6-14.6); WHITE BLOOD COUNT 8.6 x1000/uL (4.5-11.0)
[2024-08-19 16:54] LABS: DIFFERENTIAL COMMENT 1
[2024-08-19 17:02] LABS: CHLORIDE 96 mEq/L (98-107); POTASSIUM 3.6 mEq/L (3.5-5.1); SODIUM 131 mEq/L (136-145)
[2024-08-19 17:03] LABS: CARBON DIOXIDE 27 mEq/L (21-32)
[2024-08-19 17:04] LABS: CALCIUM 7.7 mg/dL (8.7-10.4); INR 1.1
[2024-08-19 17:08] LABS: CREATININE 0.8 mg/dL (0.6-1.0); GLUCOSE 82 mg/dL (70-105)
[2024-08-19 17:09] LABS: LACTIC ACID 2.1 mmol/L (0.4-2.0); TROPONIN I HIGH SENSITIVITY 8 ng/L (3.0-34); UREA NITROGEN BLOOD 25 mg/dL (9-23)
[2024-08-19 17:10] LABS: ALANINE AMINOTRANSFERASE 24 IU/L (10-49); ALBUMIN 2.4 g/dL (3.2-4.8); ASPARTATE AMINOTRANSFERASE 23 IU/L (<34)
[2024-08-19 17:11] LABS: BILIRUBIN DIRECT 0.9 mg/dL (<=3.0); BILIRUBIN TOTAL 1.6 mg/dL (0.1-1.0); PROTEIN TOTAL 5.1 g/dL (6.0-8.3)
[2024-08-19 17:21] LABS: PLATELET ESTIMATE NORMAL
[2024-08-19] MEDS ORDERED: MAGNESIUM/ALUMINUM HYDROXIDE/SIMETHICONE 30ML UDC PO PRN (21:00)
[2024-08-19] MEDS ORDERED: CLONIDINE 0.1MG TABLET PO PRN (21:00)
[2024-08-19] MEDS ORDERED: ONDANSETRON HCL 4MG/2ML INJ IV PRN (21:00)
[2024-08-19] MEDS ORDERED: POTASSIUM CHLORIDE 20MEQ TABLET SR PO PRN (21:00)
[2024-08-19] MEDS ORDERED: ACETAMINOPHEN 325MG TABLET PO PRN (21:00)
[2024-08-19] MEDS ORDERED: DOCUSATE SODIUM 100MG CAPSULE PO PRN (21:00)
[2024-08-19] MEDS: LACTATED RINGERS 1,000 ML IV ONE (21:02)
[2024-08-19] MEDS: MORPHINE SULFATE 2 MG/ML INJ (NOT FOR IM USE) IV PRN (21:37)
[2024-08-19 22:30] VITALS: BP 83/39; PULSE 117; RESP 20; TEMP 35.7508
[2024-08-20] VITALS (14 sets, daily range): BP systolic 70–96; BP diastolic 39–61; PULSE 89–121; RESP 12–20; TEMP 35.39172–36.6404; O2SAT 97–100
[2024-08-20] MEDS: SODIUM CHLORIDE 0.9% 1,000 ML IV NR (03:48)
[2024-08-20] MEDS ORDERED: DEXTROSE 50% WATER 50ML SYRINGE IV PRN (04:00)
[2024-08-20] MEDS: DEXTROSE 50% WATER 50ML SYRINGE IV PRN (06:10)
[2024-08-20] MEDS: BLOOD SUGAR DIAGNOSTIC STRIP TEST SCH (06:10)
[2024-08-20 07:07] LABS: HEMATOCRIT. 32.4 % (36.0-48.0); HEMOGLOBIN. 10.7 g/dL (12.0-16.0); MEAN CORPUSCULAR HEMOGLOBIN 29.6 pg (28.0-32.0); MEAN CORPUSCULAR VOLUME 89.4 fL (81.0-99.0); MEAN PLATELET VOLUME 8.5 fl (7.4-10.4); PLATELET 253 x1000/uL (130-400); RED BLOOD CELL COUNT 3.63 mill/uL (4.2-5.4); RED CELL DISTRIBUTION WIDTH 20.2 % (11.6-14.6); WHITE BLOOD COUNT 6.2 x1000/uL (4.5-11.0)
[2024-08-20 07:08] LABS: CALCIUM 6.6 mg/dL (8.7-10.4); CARBON DIOXIDE 24 mEq/L (21-32); CHLORIDE 102 mEq/L (98-107); SODIUM 133 mEq/L (136-145); TROPONIN I HIGH SENSITIVITY 9 ng/L (3.0-34)
[2024-08-20 07:12] LABS: DIFFERENTIAL COMMENT 1; T4 FREE 0.87 ng/dL (0.89-1.76)
[2024-08-20 07:14] LABS: ALANINE AMINOTRANSFERASE 19 IU/L (10-49); ALBUMIN 1.9 g/dL (3.2-4.8); ASPARTATE AMINOTRANSFERASE 19 IU/L (<34); CHOLESTEROL 124 mg/dL (<200); LDL CHOLESTEROL 64 mg/dL (5-100); PROTEIN TOTAL 3.9 g/dL (6.0-8.3); TRIGLYCERIDE 79 mg/dL (0-150); UREA NITROGEN BLOOD 20 mg/dL (9-23)
[2024-08-20 07:15] LABS: BILIRUBIN DIRECT 0.4 mg/dL (<=3.0); HDL CHOLESTEROL 34 mg/dL (>65)
[2024-08-20 07:16] LABS: BILIRUBIN TOTAL 0.7 mg/dL (0.1-1.0)
[2024-08-20 08:09] LABS: CREATININE 0.5 mg/dL (0.6-1.0)
[2024-08-20 08:10] LABS: GLUCOSE 48 mg/dL (70-105)
[2024-08-20] MEDS: HYDROCODONE/ACETAMINOPHEN 5/325MG TABLET PO PRN (09:43)
[2024-08-20] MEDS: ENOXAPARIN 30MG/0.3ML SYR SUBCUT SCH (09:44)
[2024-08-20] MEDS: MIDODRINE HCL 5MG TABLET PO SCH ×2 (11:36→16:57)
[2024-08-20] MEDS: DEXT 5%/0.45% NACL 1000ML 1,000 ML IV SCH (12:48)
[2024-08-20] MEDS ORDERED: IPRATROPIUM/ALBUTEROL 0.5-3(2.5)MG/3ML NEB HHN PRN (15:15)
[2024-08-20] MEDS: DEXT 5%/0.9% NACL 1,000 ML IV SCH (16:03)
[2024-08-20] MEDS: SODIUM CHLORIDE 0.9% 500 ML IV ONE (16:03)
[2024-08-20] MEDS: MAGNESIUM 2 G PREMIX 50 ML IV NR (16:56)
[2024-08-20] MEDS: DIGOXIN 500MCG/2ML AMP IV SCH (18:14)
[2024-08-20] MEDS: POTASSIUM PHOSPHATE 30 MMOL in SODIUM CHLORIDE 0.9% 490 ML IV SCH (18:30)
[2024-08-20 19:34] LABS: ANISOCYTOSIS 1+; PLATELET ESTIMATE NORMAL
[2024-08-20 20:14] LABS: CLARITY URINE CLOUDY (CLEAR); COLOR URINE DARK YELLOW (YELLOW); GLUCOSE URINE NEGATIVE (NEGATIVE); KETONES URINE TRACE (NEGATIVE); LEUKOCYTE ESTERASE URINE 2+ (NEGATIVE); NITRITE URINE NEGATIVE (NEGATIVE); OCCULT BLOOD URINE NEGATIVE (NEGATIVE); PH URINE 5.5 (4.5-8.0); PROTEIN URINE TRACE (NEGATIVE); SPECIFIC GRAVITY URINE 1.019 (1.005-1.030)
[2024-08-20 20:21] LABS: *AMPHETAMINES SCREEN URINE NEGATIVE (NEGATIVE)
[2024-08-20 20:22] LABS: *BARBITURATES SCREEN URINE NEGATIVE (NEGATIVE); *BENZODIAZEPINES SCREEN URINE NEGATIVE (NEGATIVE); *COCAINE SCREEN URINE NEGATIVE (NEGATIVE); CANNABINOID URINE SCREEN NEGATIVE (NEGATIVE); ECSTASY MDMA SCREEN URINE NEGATIVE (NEGATIVE); METHADONE URINE SCREEN NEGATIVE (NEGATIVE); OPIATES URINE SCREEN PRESUMPTIVE POSITIVE (NEGATIVE); PHENCYCLIDINE URINE SCREEN NEGATIVE (NEGATIVE)
[2024-08-20 20:29] LABS: BACTERIA URINE 1+; RBC URINE 0-2 /hpf (0-2); SQUAMOUS EPITHELIAL CELL URINE FEW /lpf (RARE/1+)
[2024-08-20] MEDS: LACTOBACILLUS GG CAPSULE PO SCH (21:00)
[2024-08-20] MEDS: PIPERACILLIN/TAZO 3.375G/100ML 100 ML IV SCH (21:42)
[2024-08-21] VITALS (14 sets, daily range): BP systolic 70–99; BP diastolic 48–70; PULSE 87–124; RESP 9–26; TEMP 35.94732–36.89184; O2SAT 87–99
[2024-08-21] MEDS: PANTOPRAZOLE SODIUM 40 MG/VIAL IV SCH (09:00)
[2024-08-21] MEDS: ASPIRIN 81MG EC TABLET PO SCH (09:00)
[2024-08-21] MEDS: ENOXAPARIN 60MG/0.6ML SYR SUBCUT SCH (11:00)
[2024-08-21] MEDS: MORPHINE SULFATE 4 MG/ML INJ (FOR IV/IM USE) IM PRN (17:06)
[2024-08-21] MEDS: DIGOXIN 125MCG TABLET PO SCH (17:12)
[2024-08-21] MEDS: MORPHINE SULFATE 4 MG/ML INJ (FOR IV/IM USE) IM NR (19:28)
[2024-08-22] VITALS (9 sets, daily range): BP systolic 39–61; BP diastolic 26–38; PULSE 112–125; RESP 12–27; TEMP 35.89176–36.55848; O2SAT 90–98
[2024-08-22] MEDS: ENOXAPARIN 60MG/0.6ML SYR SUBCUT SCH (10:45)
== END 2024-08-22 14:35 | disposition hospice, home (50) | DRG 871 ==
LOC: ER 14:11 → 5WST 16:50 → EDBEDREQ 17:12 → 5EST 08-20 12:17
PROVIDERS: ADMIT Family Medicine Adult Medicine; ATTEND Family Medicine Adult Medicine
DX: A41.9 Sepsis, unspecified organism (principal); E43 Unspecified severe protein-calorie malnutrition; L89.104 Pressure ulcer of unspecified part of back, stage 4; L89.154 Pressure ulcer of sacral region, stage 4; N39.0 Urinary tract infection, site not specified; E87.20 Acidosis, unspecified; E87.1 Hypo-osmolality and hyponatremia; I82.412 Acute embolism and thrombosis of left femoral vein; Z68.1 Body mass index [BMI] 19.9 or less, adult; R62.7 Adult failure to thrive; E80.6 Other disorders of bilirubin metabolism; I10 Essential (primary) hypertension; E11.649 Type 2 diabetes mellitus with hypoglycemia without coma; I48.91 Unspecified atrial fibrillation; D64.9 Anemia, unspecified; E87.6 Hypokalemia; M81.0 Age-related osteoporosis without current pathological fracture; Z66 Do not resuscitate; Z51.5 Encounter for palliative care; Z88.2 Allergy status to sulfonamides; Z90.49 Acquired absence of other specified parts of digestive tract; Z91.81 History of falling; Z88.8 Allergy status to other drugs, medicaments and biological substances
CPT/HCPCS: 36415; 71045; 80048; 80061; 80076; 80305; 81003; 82270; 82962; 83036; 83605; 83735; 84100; 84145; 84439; 84484; 85025; 87077; 87186; 93005; 93970; 99285; A6261; C1893; J1160; J1650; J2270; J2543; J3475; J3490; J7030; J7040; J7042; J7120